=== PATIENT | female | born 1945 | race Caucasian/White ===

== ENCOUNTER → 2019-08-01 | Outpatient (CLI) | payer MEDICARE, OTHER ==
--- NOTE | 2019-08-01 15:41 | BD ---
EXAMINATION TYPE: Axial Bone Density DATE OF EXAM: 08/01/2019 COMPARISON: NONE CLINICAL HISTORY: 73 YR OLD FEMALE....ICD-10 CODE: Z78.0 ASYMPTOMATIC M89.9 DISORDER OF BONE Height: 61.3 Weight: 206 FRAX RISK QUESTIONS: Secondary Osteoporosis: YES 3. Menopause before 45: YES, TOTAL HYST AT AGE 38 RISK FACTORS HISTORY OF: Postmenopausal woman: YES, TOTAL HYST AT AGE 38 YRS Lost more than 2 inches in height since high school: YES Hyperparathyroidism: NO Adrenal Insufficiency: NO MEDICATIONS: Additional Medications: BP MED, ZOLOFT, STATIN FOR CHOLESTEROL, Additional History: HYPERTENSION EXAM MEASUREMENTS: Bone mineral densitometry was performed using the [employer] System. Bone mineral density as measured about the Lumbar spine is: ----- L1-L4(G/cm2): 1.031 T Score Values are as follows: ----- L1: -0.5 ----- L2: -1.3 ----- L3: -2.1 ----- L4: -1.1 ----- L1-L4: -1.2 Bone mineral density FIRST DEXA SCAN AT [facility] Bone mineral density about the R hip (g/cm2): 1.031 Bone mineral density about the L hip (g/cm2): 1.011 T Score values are as follows: -----R Neck: -0.8 -----L Neck: -0.7 -----R Total: 0.2 -----L Total: 0.0 Bone mineral density FIRST DEXA STUDY AT [facility] FRAX%s: THERE IS A 12.5% CHANCE FOR A MAJOR OSTEOPOROTIC FX AND A 1.1% FOR HIP ......PROBABILITY FO R FX IN 10 YRS TIME IMPRESSION: Osteopenia (T Score between -2.5 and -1). There is slightly increased risk of fracture and the patient may be considered for treatment. Re-Screen 2-5 years. NOTE: T-SCORE=SD OF THE YOUNG ADULT MEAN.
== END | disposition home or self-care (01) ==
LOC: RADMAMWWP 14:11
PROVIDERS: ATTEND Family Medicine
DX: Z12.31 Encounter for screening mammogram for malignant neoplasm of breast (principal); M85.80 Other specified disorders of bone density and structure, unspecified site; Z78.0 Asymptomatic menopausal state
CPT/HCPCS: 77067; 77080

== ENCOUNTER → 2019-08-19 | Outpatient (CLI) | payer MEDICARE, OTHER ==
--- NOTE | 2019-08-20 08:22 | MM ---
Reason for exam: additional evaluation requested from abnormal screening. Last mammogram was performed 1 month ago. History: Patient is postmenopausal. Took estrogen for 15 years. Physical Findings: Nurse did not find any significant physical abnormalities on exam. MG Work Up Mamm w CAD LT CC with magnification, LM with magnification, and LM view(s) were taken of the left breast. Prior study comparison: August 01, 2019, bilateral MG screening mammo w CAD. April 20, 2018, mammogram, performed at [place]. There are scattered fibroglandular densities. Finding: There are typically benign round, diffuse/scattered calcifications in the left breast and oil cysts. No suspicious abnormality. These results were verbally communicated with the patient and result sheet given to the patient on 08/19/19. ASSESSMENT: Benign, BI-RAD 2 RECOMMENDATION: Return to routine screening mammogram schedule for both breasts.
== END | disposition home or self-care (01) ==
LOC: RADMAMWWP 14:04
PROVIDERS: ATTEND Family Medicine
DX: R92.8 Other abnormal and inconclusive findings on diagnostic imaging of breast (principal)
CPT/HCPCS: 77065

== ENCOUNTER → 2020-01-23 | Outpatient (CLI) | payer MEDICARE, OTHER ==
--- NOTE | 2020-01-23 15:44 | XR ---
EXAMINATION TYPE: XR lumbar spine 2 or 3V DATE OF EXAM: 01/23/2020 CLINICAL HISTORY: Sciatica of the right lower extremity for one year. No known injury. TECHNIQUE: Frontal and lateral views of the lumbar spine are obtained. COMPARISON: None FINDINGS: There are 5 lumbar type vertebral bodies identified. The lumbar spine shows satisfactory alignment without evidence of acute fracture or dislocation. Vertebral body heights and disk space he ights are within normal limits. There is multilevel osteophytic spurring and facet arthropathy. Calci fications of the abdominal aorta. IMPRESSION: 1. No acute fracture or dislocation is seen in the lumbar spine. 2. Multilevel degenerative disc disease and facet arthropathy.
== END | disposition home or self-care (01) ==
LOC: RADXRMAIN 11:42
PROVIDERS: ATTEND Family Medicine
DX: M51.36 Other intervertebral disc degeneration, lumbar region (principal); M47.896 Other spondylosis, lumbar region
CPT/HCPCS: 72100